=== PATIENT | male | born 1970 | race Hispanic/Latino ===

== ENCOUNTER 2022-01-24 22:06 | Emergency (ER) | payer BC ==
--- OUTSIDE RECORDS SUMMARY | 2022-01-24 22:09 | XMS REPORT | Continuity of Care Document ---
:1970 Author Organization [facility] t Address [address] [place] [address] Care Team Providers Name Role Phone Pcp, Patient Does Not Have A Primary Care Physician +[id number] Lab, Ang - Db Attending Clinician Unavailable Stanton Fernandez Attending Clinician STANTON PARRISH Attending Clinician Unavailable TERENCE SEWELL Attending Clinician Unavailable Terence Sewell MD Attending Clinician Doctor Unassigned, [place] Attending Clinician Unavailable HUMBLE AMEZCUA Attending Clinician Unavailable FLACO GAY Attending Clinician Unavailable Chanda Carey RN Attending Clinician Unavailable ALHAJI RENAE Attending Clinician Unavailable TERENCE SEWELL Admitting Clinician Unavailable Payers Payer Name Policy Type Policy Number Effective Date Expiration Date S ource Problems Condition Condition Condition Status Onset Resolution Last Treating Co mments Source Name Details Category Date Date Treatment Clinician Date Need for Need for Disease Active Unive rs hepatitis hepatitis 11-20 ity of C C 00:00: [place] screening screening 00 Medi henrietta test test Branch Hematuria, Hematuria, Disease Active U nivers unspecifie unspecifie 09-17 it y of d type d type 00:00: [place] 00 Medical Branch Elevated Elevated Disease Active Unive rs blood blood 09-17 ity of pressure pressure 00:00: [place] reading in reading in 00 Me dical office office Branch without without diagnosis diagnosis of of hypertensi hypertensi on on Encounter Encounter Disease Active Uni vers to to 7-05 ity of establish establish 00:00: [facility] s care care 00 Medical Bryce Micturitio Micturitio Disease Active U nivers n n 7-05 ity [facility] No known No known Disease Unive rs active active ity of problems problems [facility] Allergies, Adverse Reactions, Alerts Allergy Allergy Status Severity Reaction(s) Onset Inactive Treating Comm ents Source Name Type Date Date Clinician Clindamy Drug Active Other - See Uni vers cherry Allergy comments 12-05 ity of 00:00: [place] 00 Medical Branch CLINDAMY DRUG Active High Other-Cmnt Univ ers CHERRY INGREDI 12-05 ity of 00:00: [facility] Clindamy Propensi Active Other - See Sores to Univers cherry ty to comments 04-12 mouth ity of adverse 00:00: [place] reaction 00 [facility] CLINDAMY DRUG Active Other-Cmnt Univ ers CHERRY INGREDI 04-12 ity of 00:00: [place] 00 [facility] NO KNOWN Drug Active Univers ALLERGIE Class ity of S [facility] Social History Social Habit Start Date Stop Date Quantity Comments Source History of tobacco Cigarette Smoker University of use [facility] Exposure to 2021-11-10 2021-11-20 Not sure University of SARS-CoV-2 (event) 00:00:00 07:47:00 [facility] Cigarettes smoked 2021-10-10 2021-10-10 Univers ity of current (pack per 00:00:00 00:00:00 ) - Reported Branch Cigarette 2021-10-10 2021-10-10 University of pack-years 00:00:00 00:00:00 [facility] Tobacco use and 2021-10-10 2021-10-10 Smokeless Universit y of exposure 00:00:00 00:00:00 tobacco non-user [facility] Tobacco Comment 2021-10-10 2021-10-10 Quit 15 years Univer sity of 00:00:00 00:00:00 ago [facility] Sex Ass[birth year] At [birth year] Universit y of 00:00:00 00:00:00 [facility] Smoking Status Start Date Stop Date Source Ex-smoker 2021-10-10 00:00:00 2021-10-10 00:00:00 [facility] Never smoker [facility] Medications Ordered Filled Start Stop Current Ordering Indication Dosage Frequency Signature Comments Components Source Medication Medication Date Date Medication? Clinician (SIG) Name Name benzonatate Yes [id number] 200mg Take 2 Univers 100 mg - capsules ity of capsule 00:00[place] (two[place] Medical times Bry[place] daily as needed for Cough. benzonatate 2021- No [id number] 200mg Take 2 Univers 100 mg 12-05 capsules ity of capsule 00:00: 00:00 by mouth 2 [place] as 00 :00 (two) Medical times Bryce daily as needed for Cough. benzonatate 2021- No [id number] 200mg Take 2 Univers 100 mg 12-05 capsules ity of capsule 00:00: 00:00 by mouth 2 [place] as 00 :00 (two) Medical times Bryce daily as needed for Cough. Immunizations Ordered Filled Immunization Date Status Comments Sour e Immunization Name Name TDAP 2019-11-21 Completed [facility] 00:00:00 [facility] TDAP 2019-11-21 Completed [facility] 00:00:00 [facility] Vital Signs Vital Name Observation Time Observation Value Comments Source Systolic blood 2021-11-20 13:15:00 130 mm[Hg] Univer sity [facility] Diastolic blood 2021-11-20 13:15:00 72 [facility]Hg[facility] rate 2021-11-20 13:15:00 58 /min [facility] Body temperature 2021-11-20 13:15:00 [facility].17 [facility] height 2021-11-20 13:15:00 170.2 cm [facility] Body weight 2021-11-20 13:15:00 104.599 kg [facility] BMI 2021-11-20 13:15:00 36.12 kg/m2 [facility] Oxygen saturation in 2021-11-20 13:15:00 97 /min [facility] Arterial blood by [facility] Pulse oximetry Branch Procedures This patient has no known procedures. Encounters Start End Encounter Admission Attending Care Care Encounter Source Date/Time Date/Time Type Type Clinicians Facility Department ID 2021-11-20 2021-11-20 Dressmaker Or Tailor Lab, Ang - Db [facility] [id number] Univers 08:45:00 09:00:00 Visit Stanton Parrish [id number] ity of [facility] [id number] Kye as SANJUANITA?BLEA [phone] Oh davey CONN [address] MEDICAL OFFICE BUILDING 2021-11-20 2021-11-20 [facility] [id number] Univers 08:00:00 08:38:28 STANTON xavier [facility] 2021-11-20 2021-11-20 [facility] [id number] Univers 08:00:00 08:38:28 Visit Stanton [facility] [id number] it y of [place] [id number] Kye as SANJUANITA?BLEA [phone] Oh ellencelso [place] [address] [facility] OFFICE [facility] 2021-11-20 2021-11-20 Outpatient R SHIVANI [facility] [id number] Univers 08:00:00 08:38:28 STANTON itelmer [facility] 2021-10-22 2021-10-22 Outpatient [facility] [id number] Univers 09:21:10 23:59:00 TERENCE ity of [facility] 2021-10-22 2021-10-22 [facility] [id number] Univers 09:21:10 23:59:00 Encounter Terence REED [id number] ity of [id number] [id number] [facility] [address] 2021-10-22 2021-10-22 Orders Doctor ROLON [id number] Univers 00:00:00 00:00:00 Only Unassigned, [place] [id number] ity of [place] [facility] [id number] Kye as [phone] [address] 2021-10-18 2021-10-18 Outpatient [facility] [id number] Univers 08:30:00 08:47:53 STANTON xavier [facility] 2021-10-18 2021-10-18 [facility] [id number] Univers 08:30:00 08:47:53 Visit Stanton [facility] [id number] it y of [place] [id number] Kye as SANJUANITA?BLEA [phone] Oh dical [facility] [address] [facility] OFFICE [facility] 2021-10-16 2021-10-16 Outpatient [facility] [id number] Univers 08:30:00 08:30:00 STANTON xavier [facility] 2021-10-10 2021-10-10 [facility] [id number] Univers 16:30:00 16:30:00 Visit Terence [facility] [id number] i ty of [id number] [id number] [facility] 204 [facility] 2021-10-10 2021-10-10 Outpatient [facility] [id number] Univers 16:30:00 15:46:22 TERENCE xavier [facility] 2021-10-07 2021-10-07 Outpatient R [facility] [id number] Univers 11:30:00 11:30:00 HUMBLE xavier o f [facility] 2021-10-02 2021-10-02 Orders Doctor ОЛЬГА [id number] Univers 00:00:00 00:00:00 Only Unassigned, [place] [id number] ity of [place] [facility] [id number] Kye as [phone] [address] 2021-09-19 2021-09-19 Patient Doctor PAALCIDES [id number] Univers 00:00:00 00:00:00 Secure Msg Unassigned, HEALTH [id number] ity of [place] [id number] Kye as SANJUANITA?BLEA [phone] [address] OFFICE [facility] 2021-09-18 2021-09-18 Telephone Shivani [facility] [id number] Univers 00:00:00 00:00:00 Stanton PIRES [id number] it y of [place] [id number] [place] as SANJUANITA?BLEA [phone] [address] OFFICE [facility] 2021-09-17 2021-09-17 Outpatient [facility] [id number] Univers 09:30:00 10:48:10 STANTON xavier [facility] 2021-09-17 2021-09-17 Office [facility] [id number] Univers 09:30:00 10:00:00 Visit Stanton [facility] [id number] it y of [place] [id number] [place] as SANJUANITA?BLEA [id number] [address] OFFICE [facility] 2021-09-17 2021-09-17 Outpatient [facility] [id number] Univers 09:30:00 09:30:00 STANTON [facility] 2020-12-08 2020-12-08 Outpatient [facility] [id number] Univers 10:00:00 10:00:00 [id number] [facility] 2020-12-08 2020-12-08 Outpatient R DEIDRA [facility] [id number] Univers 10:00:00 10:00:00 FLACO youngelmer [facility] 2020-12-06 2020-12-06 Telephone ОЛЬГА Carey [id number] Univers 00:00:00 00:00:00 Chanda [place] [id number] it y of [facility] [id number] Kye as [id number] [address] 2020-12-05 2020-12-05 Outpatient [facility] [id number] Univers 11:40:00 11:40:00 ALHAJI xavier [facility] Results This patient has no known results.
[2022-01-24 23:04] LABS: Urine Blood 3+ (Negative); Urine Glucose Negative (Negative); Urine Protein Negative (Negative)
--- NOTE | 2022-01-24 23:05 | RAD REPORT ---
EXAM DESCRIPTION: CTStone Protocol - 01/24/2022 10:53 pm CLINICAL HISTORY: left flank pain COMPARISON: No comparisons TECHNIQUE: CT of the abdomen and pelvis was performed. All CT scans are performed using dose optimization technique as appropriate and may include automated exposure control or mA/KV adjustment according to patient size. FINDINGS: Lower chest: No acute abnormality. Liver: Hepatic steatosis. Biliary: No biliary ductal dilatation. Stomach: No significant focal abnormality. Duodenum: No significant focal abnormality. Pancreas: No significant abnormality. Spleen: No significant abnormality. Adrenal: No suspicious lesions. Kidney/ureter: Mild left-sided hydroureteronephrosis. 6 mm stone in the left proximal ureter. Retroperitoneum: No retroperitoneal adenopathy. Vascular: No aneurysm. Bowel: No significant focal abnormality. Normal appendix. Peritoneum: No ascites or free air. Bladder: Circumferential bladder wall thickening. Reproductive: No adnexal masses. Bones: No acute fracture. Other: n/a IMPRESSION: Mild left-sided hydronephrosis secondary to a 6 mm stone in the left proximal ureter. No nspecific bladder wall thickening which could reflect cystitis or chronic bladder outlet obstruction.
[2022-01-24 23:15] LABS: Urine Bacteria <20 /HPF (<20); Urine RBC 21-50 /HPF (None Seen)
[2022-01-25] MEDS ORDERED: TAMSULOSIN 0.4 MG SR CAP ONE (03:06)
[2022-01-25] MEDS ORDERED: CEFTRIAXONE 1000 MG/VIAL ONE (03:06)
[2022-01-25] MEDS ORDERED: NA CHLORIDE 0.9% 50 ML IV ONE (03:07)
[2022-01-25 03:09] LABS: Absolute Lymphocytes (CBC) 1.6 K/uL (0.7-4.9); Hematocrit 49.8 % (39.6-49.0); Lymphocytes % 19.5 % (15.3-44.8); RBC Red Blood Cell Count 5.47 M/uL (4.33-5.43)
[2022-01-25 03:27] LABS: Albumin 4.1 g/dL (3.4-5.0); Bilirubin Direct 0.2 mg/dL (0-0.2); Bilirubin Total 0.6 mg/dL (0.2-1.0); Protein, Total 8.1 g/dL (6.4-8.2)
[2022-01-25 03:28] LABS: Potassium 4.1 mmol/L (3.5-5.1)
--- NOTE | 2022-01-25 03:34 | ER ---
Nurse's Notes [facility] Name: Surendra Nicolas Age: 51 yrs Sex: Male : 1970 Arrival Date: 01/24/2022 Time: 22:14 Bed IW8 Private MD: Diagnosis: Calculus of ureter-left Presentation: 01/24 22:25 Chief complaint: Intermittent left flank pain and blood in urine x 5 days. Coronavirus hb screen: At this time, the client does not indicate any symptoms associated with coronavirus-19. Ebola Screen: No symptoms or risks identified at this time. Initial Sepsis Screen: Does the patient meet any 2 criteria? No. Patient's initial sepsis screen is negative. Does the patient have a suspected source of infection? No. Patient's initial sepsis screen is negative. Risk Assessment: Do you want to hurt yourself or someone else? Patient reports no desire to harm self or others. Onset of symptoms was January 20, 2022. 22:25 Method Of Arrival: Ambulatory hb 22:25 Acuity: ILYA 3 hb Triage Assessment: 01/25 03:19 General: Appears in no apparent distress. Behavior is appropriate for age. Pain: Denies ke1 pain. Musculoskeletal: Capillary refill Range of motion: intact in all extremities. Historical: - Allergies: 03:13 Clindamycin; ke1 - Social history:: Smoking status: Patient denies any tobacco usage or history of. Screenin:19 Abuse screen: Denies threats or abuse. Nutritional screening: No deficits noted. ke1 Tuberculosis screening: No symptoms or risk factors identified. Fall Risk None identified. Assessment: 00:00 Neuro: Level of Consciousness is awake, alert, Oriented to person, place, time, ke1 situation. 01:00 Reassessment: Patient states feeling better. Patient states symptoms have improved. ke1 02:00 Reassessment: No changes from previously documented assessment. ke1 04:21 Reassessment: patient is getting his IV fluid prior to discharge. ke1 Vital Signs: 01/24 22:25 BP 178 / 66; Pulse 78; Resp 16; Temp 97.6(TE); Pulse Ox 100% on R/A; Weight 99.79 kg; hb Height 5 ft. 7 in. (170.18 cm); Pain 03/25; 01/25 04:22 BP 156 / 72; Pulse 76; Resp 17; Pulse Ox 100% on R/A; Pain 0/10; ke1 01/24 22:25 Body Mass Index 34.46 (99.79 kg, 170.18 cm) hb ED Course: 01/24 22:14 Patient arrived in ED. bp1 22:16 Tej Cruz PA is PHCP. cp 22:16 Tej Mars MD is Attending Physician. cp 22:27 Triage completed. hb 22:27 Arm band placed on. hb 22:55 CT Stone Protocol In Process Unspecified. EDIA 01/25 01:42 Truong Morales, YASMIN is Primary Nurse. ke1 03:00 Inserted saline lock: 20 gauge in right antecubital area, using aseptic technique. ke1 03:19 Patient has correct armband on for positive identification. Bed in low position. Call ke1 light in reach. 03:33 Jan Peralta MD is Referral Physician. [facility] 05:16 No provider procedures requiring assistance completed. ke1 05:16 IV discontinued. ke1 Administered Medications: 03:01 Not Given (Patient Refused): Ketorolac 30 mg IVP once ke1 03:01 Not Given (Patient Refused): Zofran (Ondansetron) 4 mg IVP once; over 2 minutes ke1 03:18 Drug: Flomax (tamsulosin) 0.4 mg Route: PO; ke1 04:20 Follow up: Response: No adverse reaction ke1 03:18 Drug: Rocephin (cefTRIAXone) 1 grams Route: IV; Rate: per protocol; Site: right ke1 antecubital; 03:50 Drug: NS 0.9% 1000 ml Route: IV; Rate: 1 bolus; Site: right antecubital; ke1 Medication: 05:16 VIS not applicable for this client. ke1 Outcome: 03:33 Discharge ordered by . boy 05:16 Discharged to home ambulatory. ke1 05:16 Condition: good 05:16 Discharge instructions given to patient. 05:17 Patient left the ED. ke1 Signatures: Dispatcher [employer] EDIA Tej Mars MD MD cha Page, Corey, PA PA cp Baxter, Heather, RN RN Gi Chun bp1 Truong Morales RN RN ke1 Corrections: (The following items were deleted from the chart) 03:14 11 22:27 Allergies: No Known Allergies; ke1
--- NOTE | 2022-01-25 03:34 | EDPHYS ---
Physician Documentation [facility] Name: Surendra Nicolas Age: 51 yrs Sex: Male : 1970 Arrival Date: 01/24/2022 Time: 22:14 Bed IW8 Private MD: ED Physician Tej Mars HPI: 01/24 23:00 This 51 yrs old Male presents to ER via Ambulatory with complaints of Back cp Pain, Possible Kidney Stone, Blood in Urine. 23:00 The patient presents with pain that is acute, with no known mechanism of injury. The cp symptoms are located in the left flank. Onset: The symptoms/episode began/occurred 5 day(s) ago. The pain does not radiate. Associated signs and symptoms: Pertinent positives: hematuria, Pertinent negatives: dysuria, fever, incontinence, urinary retention, vomiting, weakness. The problem was sustained from unknown cause. Severity of symptoms: in the emergency department the symptoms have improved, moderately. Historical: - Allergies: 01/25 03:13 Clindamycin; ke1 - Social history:: Smoking status: Patient denies any tobacco usage or history of. ROS: 01/24 23:05 Constitutional: Negative for body aches, chills, fever, poor PO intake. cp 23:05 Eyes: Negative for injury, pain, redness, and discharge. cp 23:05 Cardiovascular: Negative for chest pain, edema. 23:05 Respiratory: Negative for cough, shortness of breath, wheezing. 23:05 Abdomen/GI: Negative for abdominal pain, vomiting, diarrhea, constipation. 23:05 Back: Positive for flank pain, on the left, Negative for injury or acute deformity, decreased range of motion. 23:05 : Positive for hematuria, Negative for burning with urination, testicular pain 23:05 Neuro: Negative for altered mental status, dizziness, headache, numbness, weakness. 23:05 All other systems are negative. Exam: 23:10 Constitutional: The patient appears in no acute distress, alert, awake, cp non-diaphoretic, non-toxic, well developed, well nourished. 23:10 Head/Face: Normocephalic, atraumatic. cp 23:10 Eyes: Periorbital structures: appear normal, Conjunctiva: normal, no exudate, no injection, Sclera: no appreciated abnormality, Lids and lashes: appear normal, bilaterally. 23:10 ENT: External ear(s): are unremarkable, Nose: is normal, Mouth: Lips: moist, Oral mucosa: moist, Posterior pharynx: Airway: no evidence of obstruction, patent. 23:10 Chest/axilla: Inspection: normal, Palpation: is normal, no crepitus, no tenderness. 23:10 Cardiovascular: Rate: normal, Rhythm: regular, JVD: is not appreciated. 23:10 Respiratory: the patient does not display signs of respiratory distress, Respirations: normal, no use of accessory muscles, no retractions, labored breathing, is not present, Breath sounds: are clear throughout, no decreased breath sounds, no stridor, no wheezing. 23:10 Abdomen/GI: Inspection: abdomen appears normal, Bowel sounds: active, all quadrants, Palpation: soft, in all quadrants, nontender, in all quadrants. 23:10 Back: CVA tenderness, that is mild, is noted on the left, Straight leg raises: of both lower extremities does not illicit pain. 23:10 Neuro: Orientation: to person, place \T\ time. Mentation: is normal, Motor: moves all fours, strength is normal, Sensation: is normal, Gait: is steady, at a normal pace, without difficulty. Vital Signs: 22:25 BP 178 / 66; Pulse 78; Resp 16; Temp 97.6(TE); Pulse Ox 100% on R/A; Weight 99.79 kg; hb Height 5 ft. 7 in. (170.18 cm); Pain 1/10; 01/25 04:22 BP 156 / 72; Pulse 76; Resp 17; Pulse Ox 100% on R/A; Pain 0/10; ke1 01/24 22:25 Body Mass Index 34.46 (99.79 kg, 170.18 cm) hb MDM: 01/24 22:30 Patient medically screened. 01/25 00:00 Differential diagnosis: Cholelithiasis Hydronephrosis Ureterolithiasis uti. cp 02:50 Data reviewed: vital signs, nurses notes, radiologic studies, and as a result, I will cp discharge patient. 01/24 22:31 Order name: Urine Microscopic Only; Complete Time: 00:29 cp 01/25 00:29 Interpretation: URBC 21-50; Reviewed. 01/24 23:04 Order name: Urine Dipstick-Ancillary; Complete Time: 00:29 EDMS 11 00:29 Interpretation: Normal except: UBLD 3+. cp 01/25 00:31 Order name: Basic Metabolic Panel; Complete Time: 03:32 cp 01/25 00:31 Order name: CBC with Diff; Complete Time: 03:32 cp 01/25 00:31 Order name: Hepatic Function; Complete Time: 03:32 cp 01/25 00:31 Order name: Lipase; Complete Time: 03:32 cp 01/24 22:31 Order name: Urine Dipstick-Ancillary (obtain specimen); Complete Time: 23:40 cp 01/24 22:31 Order name: CT Stone Protocol; Complete Time: 00:29 cp 01/25 00:31 Order name: IV Saline Lock; Complete Time: 03:18 cp 01/25 00:31 Order name: NPO; Complete Time: 03:18 cp Administered Medications: 03:01 Not Given (Patient Refused): Ketorolac 30 mg IVP once ke1 03:01 Not Given (Patient Refused): Zofran (Ondansetron) 4 mg IVP once; over 2 minutes ke1 03:18 Drug: Flomax (tamsulosin) 0.4 mg Route: PO; ke1 04:20 Follow up: Response: No adverse reaction ke1 03:18 Drug: Rocephin (cefTRIAXone) 1 grams Route: IV; Rate: per protocol; Site: right ke1 antecubital; 03:50 Drug: NS 0.9% 1000 ml Route: IV; Rate: 1 bolus; Site: right antecubital; ke1 Disposition Summary: 01/25/22 03:33 Discharge Ordered Location: Home boy Problem: new boy Symptoms: have improved boy Condition: Stable boy Diagnosis - Calculus of ureter - left boy Followup: cp - With: - When: 2 - 3 days - Reason: Recheck today's complaints, pain continues Discharge Instructions: - Discharge Summary Sheet cp - Kidney Stones cp - Renal Colic cp Forms: - Medication Reconciliation Form boy - Thank You Letter boy - Antibiotic Education boy - Prescription Opioid Use boy Prescriptions: - Flomax 0.4 mg Oral capsule - take 1 capsule by ORAL route once daily As needed 1/2 hour following the same cp meal each day; 7 capsule; Refills: 0, Product Selection Permitted - Zofran 4 mg Oral Tablet - take 1 tablet by ORAL route every 12 hours As needed; 20 tablet; Refills: 0, cp Product Selection Permitted - Cipro 500 mg Oral Tablet - take 1 tablet by ORAL route every 12 hours for 7 days; 14 tablet; Refills: 0, boy Product Selection Permitted - Tramadol 50 mg Oral Tablet - take 1 tablet by ORAL route every 8 hours as needed; 12 tablet; Refills: 0, cp Product Selection Permitted Addendum: 01/30/2022 09:48 Co-signature as Attending Physician, Tej Mars MD I agree with the assessment and c ramesh plan of care. Signatures: Dispatcher [employer] EDTej Sutherland MD MD cha Page, Corey, PA PA cp Baxter, Heather, RN RN Truong Vasquez RN RN ke1 Corrections: (The following items were deleted from the chart) 01/25 03:14 01/24 22:27 Allergies: No Known Allergies; ke1
[2022-01-25] MEDS ORDERED: NA CHLORIDE 0.9% 1,000 ML ONE (03:37)
[2022-01-25 05:40] VITALS: TEMP 97.6; O2SAT 100
[2022-01-25 05:41] VITALS: BP 156/72
== END 2022-01-25 05:17 | disposition home or self-care (01) ==
LOC: ER 22:06
DX: N20.1 Calculus of ureter (principal); Z88.3 Allergy status to other anti-infective agents
CPT/HCPCS: 85025; 80048; 36415; 80076; 83690; 76377; 74176; 96374; 99283; J7030; 81003; 81015